=== PATIENT | female | born 1995 | race Caucasian/White ===

== ENCOUNTER → 2021-10-21 | Outpatient (CLI) | payer OTHER ==
--- NOTE | 2021-10-21 10:35 | KCIC ---
EXAM: Cervical spine MRI without contrast. HISTORY: Pain. Bilateral upper extremity numbness. TECHNIQUE: Multiplanar, multisequence magnetic resonance imaging of the cervical spine was performed without contrast. COMPARISON: None. FINDINGS: There is no significant listhesis. There is no acute or subacute fracture. There is no susp icious osseous lesion. There is mild cerebellar tonsillar ectopia, measuring 3 mm inferior to the for amen magnum. This is not within limits for a Chiari I malformation. There is prominent adenoid soft t issue, likely reactive in a patient of this age. No spinal cord lesion is seen. There is diffuse decr eased T1 marrow signal intensity, likely due to anemia and female patient of this age. There is a sma ll benign osseous hemangioma within T3. At C2-C3, there is no stenosis. At C3-C4, there is a left posterior lateral disc osteophyte complex superimposed on endplate remodeli ng. There is mild left facet arthropathy. There is minimal left foraminal stenosis. At C4-C5, there is no stenosis. At C5-C6, there is no stenosis. At C6-C7, there is no stenosis. IMPRESSION: 1. Mild degenerative change at C3-C4, contributing to minimal left foraminal stenosis. 2. Mild cerebellar tonsillar ectopia, not within limits for a Chiari I malformation. 3. Decreased T1 marrow signal intensity, likely due to anemia in a female patient of this age. Electronically signed by: Kenna Ramirez MD (10/21/2021 10:33 AM) [facility]
== END ==
LOC: KCIC MRI 09:15
PROVIDERS: ATTEND Physician Assistant
DX: M48.02 Spinal stenosis, cervical region (principal); M25.78 Osteophyte, vertebrae; G56.23 Lesion of ulnar nerve, bilateral upper limbs; D18.09 Hemangioma of other sites
CPT/HCPCS: 72141

== ENCOUNTER → 2021-11-04 | Outpatient (CLI) | payer OTHER ==
[~2021-11-04] MED LIST: GADOTERATE 5 MMOL/10ML VIAL. INT ART ONE; IOHEXOL 300 MG/ML 50 ML VIAL. INT ART ONE; LIDOCAINE 1% Multi-Dose 20 ML VIAL. IJ ONE; SPIR25TA5 PO
--- NOTE | 2021-11-04 14:24 | KCIC ---
FLUOROSCOPICALLY GUIDED RIGHT SHOULDER ARTHROGRAM 1. INDICATION: The patient is a 26 years old Female who presented with right shoulder pain. 2. CONSENT: The risks, benefits, treatment options, potential complications and personnel to be invo lved were discussed (including the risks of radiation exposure, instruments to be used, contrast and anesthesia administration) with the patient. All questions were answered and consent was obtained. Th e patient indicated willingness to proceed. 3. GENERAL: a) Medication Reconciliation: The patient's medications and allergies were reviewed in the [facility] medical record and reconciled to the proposed procedure/treatment. Pre-procedure Sign-in: Safety Checklist Performed Yes b) Positioning: The patient was placed Supine on the fluoroscopy table. c) The shoulder was then sterilely prepped and draped. d) Time Out: A time out was performed immediately prior to procedure start with the nursing, anesthes ia and interventional team, correctly identifying the patient name, date of , procedure, anatomy (including marking of site and side), patient position, procedure consent form, relevant diagnostic and radiology test results, antibiotic administration, safety precautions, and procedure-specific equ ipment needs. e) Anesthesia Type: Local anesthesia: 3 mL 1% Lidocaine 4. PROCEDURE: a) Procedure Details: A 22g spinal needle was inserted into the shoulder joint. 1 mL Omnipaque 300 w as injected to confirm intra-articular placement of needle. Contrast was observed to flow into the in tra-articular space of the joint without significant resistance. 12 mL of injectate was administered into the joint. The needle was removed. Images were stored to the permanent digital archive documenti ng needle position. b) Injectate Contents: 0.2 mL Clariscan 20 mL Normal Saline c) Estimated Blood Loss: 0 mL RADIATION DOSE: Fluoroscopic Radiation Summary: Fluoroscopy Time: 00:10 min:sec Number of Images: 1 POST PROCEDURE: a) Hemostasis: Hemostasis was achieved using light manual compression. b) Sign-out: Communication Performed Yes c) Conclusion: The patient was discharged from the radiology department in stable condition. COMPLICATIONS: a) Significant Patient Complication: None If other, explain: b) Complications during the procedure: None If other, explain: 5. RESULTS: Contrast was injected into the joint. 6. IMPRESSION: SUCCESSFUL FLUOROSCOPICALLY GUIDED ARTHROGRAM OF THE RIGHT SHOULDER DESCRIBED ABOVE. Electronically signed by: Jose Koehler DO (11/04/2021 2:22 PM) [id number]
--- NOTE | 2021-11-04 15:17 | KCIC ---
EXAMINATION: MR ARTHROGRAM RIGHT SHOULDER CLINICAL HISTORY: Chronic right shoulder pain. History of and 2020. TECHNIQUE: MRI shoulder arthrogram protocol. Procedural portion of the arthrogram reported separately . COMPARISON: None FINDINGS: LABRUM: Blunting of the inferior labrum with no discrete tear definitively visualized. TENDONS: - Supraspinatus: Intact. - Infraspinatus: Intact. - Subscapularis: Intact. - Teres minor: Intact. - Biceps Tendon: Long head biceps tendon intact and appropriately located. MUSCLES: Rotator cuff muscle bulk and signal intensity within normal limits. GLENOHUMERAL JOINT: No full-thickness chondral defect visualized. ACROMIOCLAVICULAR JOINT: Within normal limits. BONES/MARROW: No evidence of acute fracture or suspicious marrow replacing process. IMPRESSION: No full-thickness rotator cuff tear. Blunting of the inferior labrum without discrete tear. Electronically signed by: Jose Koehler DO (11/04/2021 3:14 PM) [id number]
== END | disposition home or self-care (01) ==
LOC: KCIC 13:05
PROVIDERS: ATTEND Family Medicine
DX: S40.911A Unspecified superficial injury of right shoulder, initial encounter (principal); M25.511 Pain in right shoulder; Z79.899 Other long term (current) drug therapy; Z88.8 Allergy status to other drugs, medicaments and biological substances; X58.XXXA Exposure to other specified factors, initial encounter; Y93.89 Activity, other specified; Y92.89 Other specified places as the place of occurrence of the external cause; Y99.8 Other external cause status
CPT/HCPCS: 23350; 73222; 77002; A9575; J3490; Q9967